=== PATIENT | male | born 1970 | race Caucasian/White ===

== ENCOUNTER 2023-02-04 07:54 | Emergency (ER) | payer OTHER, MEDICAID ==
[~2023-02-04] VITALS: Ht 175.3 cm; Wt 104.9 kg
[~2023-02-04 07:54] MED LIST: METO-6 PO; RISP3TAB41 PO; SERT100T PO; TRAM100T14 PO
[2023-02-04 08:48] VITALS: BP 140/90; PULSE 99; RESP 18; TEMP 98.5; O2SAT 100
[2023-02-04] MEDS ORDERED: KETOROLAC TROMETH 60MG/2ML VIAL IM ONE (09:00)
[2023-02-04] MEDS ORDERED: LORazepam 2MG/ML-1ML VIAL IM ONE (09:00)
[2023-02-04] MEDS ORDERED: IBUP-1456 PO (09:43)
[2023-02-04] MEDS ORDERED: HYDR50CA PO (09:43)
== END 2023-02-04 09:50 | disposition home or self-care (01) ==
LOC: ER 07:54
DX: R53.1 Weakness (principal); F41.1 Generalized anxiety disorder; I10 Essential (primary) hypertension; Z79.899 Other long term (current) drug therapy; Z59.00 Homelessness unspecified
CPT/HCPCS: 96372; 99284; J1885; J2060